=== PATIENT | male | born 1965 | race African-American/Black ===

== ENCOUNTER 2022-07-16 20:32 | Emergency (ER) | payer MEDICAID, OTHER ==
[~2022-07-16] VITALS: Ht 172.7 cm; Wt 70.0 kg
[2022-07-16] MEDS ORDERED: ONDANSETRON HCL 4MG/2ML INJ IV ONE (21:30)
[2022-07-16] MEDS ORDERED: MORPHINE SULFATE 4 MG/ML CPJ (NOT FOR IM USE) IV ONE (21:30)
[2022-07-16 21:41] LABS: BASOPHILS % 0.8 % (0.0-2.0); EOSINOPHILS % 0.5 % (0.0-5.0); HEMATOCRIT. 44.6 % (42.0-52.0); HEMOGLOBIN. 14.8 g/dL (14.0-18.0); LYMPHOCYTES % 12.9 % (20.0-50.0); MEAN CORPUSCULAR VOLUME 93.2 fL (80.0-94.0); MEAN PLATELET VOLUME 8.8 fl (7.4-10.4); MONOCYTES % 5.6 % (2.0-8.0); NEUTROPHILS % 80.2 % (40.0-76.0); PLATELET 211 x1000/uL (130-400); RED BLOOD CELL COUNT 4.78 mill/uL (4.7-6.1); RED CELL DISTRIBUTION WIDTH 12.7 % (11.6-14.6)
[2022-07-16 21:51] LABS: CHLORIDE 107 mEq/L (98-107)
[2022-07-16 21:53] LABS: PROTHROMBIN TIME 10.6 sec (9.6-11.0)
[2022-07-16 21:59] LABS: ETHANOL BLOOD 45 mg/dL
[2022-07-16] MEDS ORDERED: VANCOMYCIN 1.25GM PMX (XELLIA) 250 ML IV NR (22:00)
[2022-07-16] MEDS: TETANUS, DIPHTHERIA, PERTUSSIS VAC/PF 0.5ML (>10YR OLD) IM ONE ×2 (22:05→22:08)
[2022-07-16] MEDS: CEFTAZIDIME PENTAHYDRATE 1 G in DEXTROSE 5% WATER 50 ML IV SCH (22:29)
[2022-07-17] MEDS: CEFTAZIDIME PENTAHYDRATE 1 G in DEXTROSE 5% WATER 50 ML IV SCH (06:13)
[2022-07-17] MEDS ORDERED: VANCOMYCIN 1G PREMIX 200 ML IV SCH (09:00)
[2022-07-17 13:00] VITALS: BP 118/62
== END 2022-07-17 14:33 | disposition short-term general hospital (02) ==
LOC: ER 20:32
DX: S05.31XA Ocular laceration without prolapse or loss of intraocular tissue, right eye, initial encounter (principal); W18.39XA Other fall on same level, initial encounter; Y93.89 Activity, other specified; Y92.89 Other specified places as the place of occurrence of the external cause; Y99.8 Other external cause status
CPT/HCPCS: 36415; 70450; 70480; 80053; 80320; 85025; 85610; 96365; 96367; 96375; 99291; J0713; J2270; J2405; J3370; J7060; Z7610; 90715; G0480

== ENCOUNTER 2024-12-19 04:14 | Emergency (ER) | payer OTHER, MEDICAID ==
[~2024-12-19] VITALS: Ht 167.6 cm; Wt 70.0 kg
[2024-12-19 04:18] VITALS: O2SAT 100
[2024-12-19] MEDS: ACETAMINOPHEN 325MG TABLET PO ONE (04:45)
[2024-12-19 04:49] VITALS: PULSE 70
[2024-12-19] MEDS ORDERED: IBUP-1455 MT (06:17)
[2024-12-19 07:14] VITALS: BP 138/88; RESP 68; TEMP 37.3; O2SAT 99
== END 2024-12-19 08:44 | disposition home or self-care (01) ==
LOC: ER 04:14
DX: M25.522 Pain in left elbow (principal); M25.552 Pain in left hip; S80.12XA Contusion of left lower leg, initial encounter; S40.022A Contusion of left upper arm, initial encounter; I46.9 Cardiac arrest, cause unspecified; V03.10XA Pedestrian on foot injured in collision with car, pick-up truck or van in traffic accident, initial encounter; Y93.89 Activity, other specified; Y92.410 Unspecified street and highway as the place of occurrence of the external cause; Y99.8 Other external cause status
CPT/HCPCS: 73080; 73502; 73590; 99284